=== PATIENT | female | born 1990 | race African-American/Black ===

== ENCOUNTER 2019-09-27 06:17 | Inpatient (IN) | payer OTHER, SELFPAY ==
--- NOTE | ~2019-09-27 | XR_ITS ---
EXAMINATION: XR chest 2V DATE: 09/27/2019 08:21 INDICATION: Shortness of breath. Fever. TECHNIQUE: Frontal and lateral views of the chest were obtained. COMPARISON: CT abdomen and pelvis 09/27/2019 FINDINGS: The chest demonstrates clear lungs without pneumonia, pleural effusion, or pneumothorax. Th e heart size is normal. IMPRESSION: 1. No acute cardiopulmonary disease. Reviewed, dictated and finalized at location A.
--- NOTE | ~2019-09-27 | CT_ITS ---
EXAMINATION: CT abdomen pelvis w con DATE: 09/27/2019 08:21 INDICATION: Abdominal pain. Fever. TECHNIQUE: Computed tomography (CT) of the abdomen and pelvis was performed with 100 mL Omnipaque 350 intravenous contrast. Automated exposure control and iterative reconstruction technique were employe d. The dose-length product was 339.32 mGy-cm. COMPARISON: None. FINDINGS: The visualized portions of the lung bases are clear without pneumonia or pleural effusion. The heart size is normal. No pericardial effusion. There is a 10 mm cyst in the liver. The gallbladde r, spleen, pancreas, adrenal glands, and kidneys are normal. There are no dilated loops of bowel. The appendix is normal. There are no pathologically enlarged lymph nodes. There is no free intraperitone al fluid. The bones are unremarkable. IMPRESSION: 1. No etiology for the patient's symptoms. Reviewed, dictated and finalized at location A.
[2019-09-27 06:20] VITALS: BP 97/44; PULSE 110; RESP 18; TEMP 36.7; O2SAT 100
[2019-09-27 06:40] VITALS: BP 118/68; PULSE 100; RESP 18; O2SAT 100
--- NOTE | 2019-09-27 06:45 | ED.BACK ---
HPI - Back Pain/Injury General Chief Complaint: Back Pain/Injury Stated Complaint: fever, SOB Source: patient and EMS Mode of arrival: EMS Limitations: no limitations History of Present Illness HPI Narrative: This is a 28-year-old female that presents via EMS to our emergency department with right flank pain that radiates into her upper back and neck area that started approximately 2 days ago had progressively increased over the past 2 days, patient states that she does not have a thermometer but she has a subjective fever, with no nausea or vomiting there is currently no dysuria no hematuria there is pain in her right flank that she rates at about a 6/10, she has no chest pain, with some mild shortness of breath with a cough that is nonproductive. Patient with past medical history according to patient's significant for renal insufficiency that she was hospitalized for back in May at [facility]. Otherwise the patient is a smoker, with some alcohol use. Patient also states that there is some weakness along with her fever and flank pain. MD elicited complaint: back pain Onset (ago): day(s) Timing: intermittent Severity: moderate Pain scale (0-10): 6 Similar Symptoms Previously: Yes Quality: dull Location: right flank Radiation: neck Exacerbating factors: none Relieving factors: none Associated symptoms: weakness, fever and abdominal pain Related Data Home Medications Medication Instructions Recorded Confirmed No Home Medications 09/27/19 09/27/19 Allergies Allergy/AdvReac Type Severity Reaction Status Date / Time No Known Allergies Allergy Verified 09/27/19 06:28 Review of Systems Review of Systems: All systems reviewed & are unremarkable except as noted in HPI and below PMFSH Past Medical History Medical History Renal insufficiency Exam Const: General: no acute distress and alert Orientation/consciousness: patient oriented x3 Limitations: altered mental status HENMT: Head: normal to inspection Eyes: Conjunctivae: conjunctivae normal Pupils: Equal, round and reactive pupils present Neck: Neck: normal visual inspection and no lymphadenopathy Chest: Chest palpation & inspection: normal inspection of the chest and abnormal inspection of the chest Resp: Effort & Inspection: normal respiratory effort Auscultation: clear to auscultation bilaterally Cardio: Rate: regular rate Rhythm: regular rhythm GI: Inspection: distended : General: Yes Bladder palpation abnormal and Yes CVA tenderness Back/Spine/Pelvis: Back: CVA tenderness Skin: General skin exam: normal color Rashes: no rashes Neuro: General: patient oriented x3, moves all extremities, no meningeal signs and no focal motor deficits Extrem: General: normal to inspection Psych: Appearance: grossly normal Mental Status: mental status grossly normal Affect: normal affect Thought content: Yes Normal thought content present Course Vital Signs Vital signs: Vital Signs Temperature 36.7 C 09/27/19 06:20 Pulse Rate 110 H 09/27/19 06:20 Respiratory Rate 18 09/27/19 06:20 Blood Pressure 97/44 L 09/27/19 06:20 Pulse Oximetry 100 09/27/19 06:20 Temperature 36.7 C 09/27/19 06:20 Pulse Rate 100 09/27/19 06:40 Respiratory Rate 18 09/27/19 06:40 Blood Pressure 118/68 09/27/19 06:40 Pulse Oximetry 100 09/27/19 06:40 Critical Care Time Critical Care Time Critical Care Time: No Discharge Plan Discharge Prescriptions: No Action No Home Medications RF: 0 Follow-up/Referrals: UNKNOWN,DOCTOR [Primary Care Provider] -
[2019-09-27] MEDS: SODIUM CHLORIDE 0.9% IV 1,000 ML 999 ML IV CONT (06:57)
[2019-09-27 07:11] LABS: Hematocrit 39.2 % (35.0-49.0); Hemoglobin 13.1 g/dL (12.0-15.0); Mean Corpuscular HGB Conc 33.4 g/dL (32.0-36.0); Mean Corpuscular Volume 95.8 fL (78.0-102.0); Mean Platelet Volume 9.7 fl (9.2-11.8); Platelet Count Result 308 K/mm3 (150-420); Red Blood Count 4.09 M/mm3 (4.20-5.40); White Blood Count 13.9 K/mm3 (4.8-10.8)
--- NOTE | 2019-09-27 07:11 | ED.ABDPAIN ---
HPI - Abdominal Pain General Chief Complaint: Back Pain/Injury Stated Complaint: fever, SOB Time Seen by Provider: 09/27/19 07:11 Source: patient and EMS Mode of arrival: EMS Limitations: no limitations History of Present Illness HPI narrative: 28-year-old woman comes in today complaining of right flank pain which has been present for last 3 days. Patient states that she has had fever and 3 episodes of vomiting in the last 24 hours. She denies hematuria and dysuria. She states that she was admitted for similar symptoms at [facility] for she was also diagnosed with some degree of renal failure. MD elicited complaint: abdominal pain and flank pain Pertinent past history: past UTI Onset (ago): day(s) Pain Consistency: constant Location: R flank Severity: moderate Quality: aching and sharp Radiation: none Migration to: no migration Exacerbating factors: nothing Relieving factors: nothing Associated symptoms: nausea, vomiting and fever Related Data Home Medications Medication Instructions Recorded Confirmed No Home Medications 09/27/19 09/27/19 Allergies Allergy/AdvReac Type Severity Reaction Status Date / Time No Known Allergies Allergy Verified 09/27/19 06:28 Review of Systems Constitutional: Constitutional: Reports chills, Reports fatigue, Reports fever(s) and Denies weakness Eyes: Eyes: Denies change in vision and Denies photophobia ENT: Denies dysphagia, Denies nasal congestion and Denies sore throat Cardiovascular: Cardiovascular: Denies chest pain and Denies radiating jaw, neck or arm pain Respiratory: Respiratory: Denies cough, Reports dyspnea and Denies wheezing Gastrointestinal: Gastrointestinal: Reports abdominal pain, Denies diarrhea, Reports nausea and Reports vomiting Genitourinary: Genitourinary: Denies hematuria, Denies nocturia, Denies dysuria and Reports flank pain Musculoskeletal: Musculoskeletal: Reports back pain, Denies arthralgias, Denies joint swelling and Denies muscle cramps Integumentary/Breasts: Skin/Breast: Denies pruritus, Denies erythema and Denies rash Neurologic: Denies vertigo, Denies dizziness and Denies syncope Psychiatric: Psychiatric: Denies anxiety and Denies depression Endocrine: Endocrine: Denies polydipsia and Denies polyuria Hematologic/Lymphatic: Hematologic/Lymphatic: Denies easy bleeding and Denies easy bruising Allergic/Immunologic: Allergic/Immunologic: Denies lip swelling and Denies wheezing PMFSH Past Medical History Medical History (Updated 09/27/19 @ 08:38 by Juan Francisco Ordaz MD) Renal insufficiency Surgical History Surgical History (Updated 09/27/19 @ 07:20 by Juan Francisco Ordaz MD) H/O hand surgery Social History Social History (Updated 09/27/19 @ 07:21 by Juan Francisco Ordaz MD) Smoking status: Current every day smoker Alcohol intake: never Substance use type: marijuana Living arrangements: with family Exam Const: General: healthy appearing and alert Orientation/consciousness: patient oriented x3 Limitations: no limitations Other: Moderate acute distress HENMT: Mouth: Yes Normal oral and palatal mucosa present and Yes moist mucous membranes Throat: posterior oropharynx normal Eyes: Conjunctivae: conjunctivae normal Pupils: Equal, round and reactive pupils present EOM: EOMs intact bilaterally Neck: Neck: normal visual inspection and no lymphadenopathy Resp: Effort & Inspection: normal respiratory effort and not labored Auscultation: clear to auscultation bilaterally, no rales, no rhonchi and no wheezes Cardio: Rate: regular rate Rhythm: regular rhythm Heart sounds: no murmurs GI: GI Palp: Yes Soft to palpation, Yes Tenderness to palpation present (GI), No Guarding due to palpation present (GI), No Rigid due to palpation and No Rebound tenderness present : General: Yes CVA tenderness on the right Skin: General skin exam: normal color, no jaundice and no pallor Rashes: no rashes Neuro: General: p
[2019-09-27 07:16] LABS: Add Urine Microscopic? YES; Appearance Urine Cloudy (Clear); Bilirubin Urine 1+ (Negative); Blood Urine 3+ (Negative); Color Urine Straw (Yellow); Glucose Urine UA Negative (Negative); Ketones Urine 1+ (Negative); Leukocyte Esterase Ur 2+ (Negative); Nitrate Urine Positive (Negative); Protein Urine 2+ (Negative); Specific Grav Ur 1.025 (1.010-1.020)
[2019-09-27 07:18] LABS: Pregnancy On Board Control POS; Urine Pregnancy Test Negative
[2019-09-27 07:19] LABS: Specific Gravity Ur 1.025 (1.010-1.035)
[2019-09-27 07:25] LABS: Squamous Epithelial Cell Urine Few /hpf (Few); WBC Urine >75 /hpf (0-3)
[2019-09-27 07:26] LABS: Bacteria Urine 3+ /hpf; Mucus Urine Moderate /lpf
[2019-09-27 07:27] LABS: Alanine Aminotransferase 14 U/L (14-59); Albumin Level 3.8 g/dL (3.4-5.0); Alkaline Phosphatase 67 U/L (46-116); Anion Gap 13.7 mmol/L (7-16); Aspartate Amino Transferase 17 U/L (15-37); Bilirubin,Total 0.7 mg/dL (0.00-1.00); Blood Urea Nitrogen 12 mg/dL (7-18); Calcium 9.1 mg/dL (8.5-10.1); Carbon Dioxide 27 mmol/L (21-32); Chloride 101 mmol/L (98-108); Estimated CRCL calculation 53 ml/min; Estimated Glomerular Filt Rate > 60; Glucose 94 mg/dL (70-99); Osmolality Calculated 285 mOsm/kg (285-295); Potassium 3.7 mmol/L (3.5-5.1); Sodium 138 mmol/L (136-145); Total Protein 7.4 g/dL (6.4-8.2)
[2019-09-27] MEDS: HYDROMORPHONE HCL 2 MG/ML VIAL 0.5 MG IV PUSH ×3 (07:30→18:00)
[2019-09-27] MEDS: ONDANSETRON INJ 4 MG/2 ML VIAL IV PUSH ×3 (07:30→19:27)
[2019-09-27 07:35] LABS: Lactic Acid 1.7 mmol/L (0.4-2.0)
[2019-09-27 07:36] LABS: Influenza Control Valid (Valid)
[2019-09-27 07:39] LABS: Basophils Absolute Auto 0.04 K/mm3 (0.00-0.10); Basophils Percent Auto 0.3 % (0.0-1.0); Eosinophils Absolute Auto 0.02 K/mm3 (0.02-0.50); Eosinophils Percent Auto 0.1 % (1.0-6.0); Hematocrit 38.9 % (35.0-49.0); Hemoglobin 13.1 g/dL (12.0-15.0); Immature Granulocyte Absolute 0.09 K/mm3 (0.00-0.00); Immature Granulocyte Percent A 0.7 % (0.0-0.0); Lymphocytes Absolute Auto 2.32 K/mm3 (1.10-4.50); Lymphocytes Percent Auto 17.1 % (18.0-42.0); Mean Corpuscular HGB Conc 33.7 g/dL (32.0-36.0); Mean Corpuscular Hemoglobin 32.2 pg (27.0-31.0); Mean Corpuscular Volume 95.6 fL (78.0-102.0); Mean Platelet Volume 9.9 fl (9.2-11.8); Monocytes Absolute Auto 1.48 K/mm3 (0.10-0.90); Monocytes Percent Auto 10.9 % (2.0-11.0); Neutrophils Absolute Auto 9.6 K/mm3 (1.7-7.2); Neutrophils Percent Auto 70.9 % (50.0-70.0); Platelet Count Result 308 K/mm3 (150-420); Red Blood Count 4.07 M/mm3 (4.20-5.40); White Blood Count 13.6 K/mm3 (4.8-10.8)
[2019-09-27 07:46] LABS: Lipase 45 U/L (73-393)
[2019-09-27 08:46] VITALS: BP 111/75; PULSE 98; RESP 20; TEMP 36.6; O2SAT 100
--- NOTE | 2019-09-27 08:55 | PC.NURSE ---
Pt. to be full admit for floor, report given to CHRISTI Uriostegui and pt. resting c VSS.
[2019-09-27 09:10] VITALS: BMI 18.3
--- NOTE | 2019-09-27 09:10 | ADMGEN ---
This patient, Siri Trevizo, was admitted to 2nd Floor Room 201-1. Patient/family oriented to hospital policies and general routines including ID bracelet, bed and alarms, visiting hours, pain management, procedures, bathroom and other care routines, personal items, smoking policy, room service/diet, and visiting hours. Valuables list has been completed. Information on how to activate the Rapid Response Team has been discussed. Patient/Family are encouraged to report perceived risks to care and to ask questions if they do not understand what they are told or what they should do.
[2019-09-27] MEDS: DEXTROSE 5%/0.45% SOD CHL 1,000 ML 150 ML IV CONT ×2 (10:05→18:00)
--- NOTE | 2019-09-27 11:59 | PM.IMHP ---
H&P: HPI History of Present Illness Chief complaint: fever, SOB Narrative: Siri Trevizo is a 28 year old female that presented to the ED today complaining of right flank plain which radiates to her mid abdominal area. Patient has a past medical history of acute renal failure. According to patient back in May she was admitted to [facility] in [place] for pyelonephritis in acute renal failure. According to patient she was placed on IV antibiotic as inpatient and she was discharge with p.o. antibiotics. she did not rock picker her prescription of antibiotics after discharging. According to patient she has had right flank pain that radiates with a temperature and nausea for approximately 3 days. She did not take anything at home for her symptoms. She decided to come to the ED today because she did not want her condition to worsen like it did in May . patient also reported occasional shortness of breath. while in the ER her UA indicated that she had leukocytes bacteria and nitrates in her urine. Her abdominal CT and chest x-ray were unremarkable her lactic acid and white blood cells were within normal limits she was started on Rocephin her blood cultures and UA Cultures are pending. Vital signs are 111/75, 98, 20, 36.6, 100% on room air. patient is being admitted for follow pyelonephritis. we will hydrate her overnight and she will receive IV antibiotics. she will possibly discharge tomorrow. patient educated on the importance of continuing her antibiotic treatment once she is discharged. Patient denies SOB, CP, palpitation, extremity numbness, lightheadness, dizziness, constipation, diarrhea, chills or fever. Review of Systems Constitutional: Constitutional: Reports fatigue, Reports fever(s) and Reports poor appetite Cardiovascular: Cardiovascular: Reports no additional cardiovascular complaints, Denies chest pain at rest, Denies edema, Denies palpitations and Reports dyspnea Respiratory: Respiratory: Reports no additional respiratory complaints, Denies chest congestion, Denies cough and Reports dyspnea Gastrointestinal: Gastrointestinal: Reports no additional gastrointestinal complaints, Reports abdominal pain ( right flank pain that radiates to her mid abd area), Denies constipation, Denies dyspepsia, Denies diarrhea, Reports nausea and Reports vomiting Genitourinary: Genitourinary: Denies hematuria and Denies dysuria Musculoskeletal: Musculoskeletal: Reports no additional musculoskeletal complaints Integumentary/Breasts: Skin/Breast: Reports system reviewed and no additional complaints, except as docu Neurologic: Reports system reviewed and no additional complaints, except as documented, Denies confusion, Denies vertigo, Denies dizziness, Denies syncope, Denies loss of vision and Denies numbness Psychiatric: Psychiatric: Reports no additional psychiatric complaints, Denies anxiety, Denies confusion and Denies depression Endocrine: Endocrine: Reports no additional endocrine complaints Hematologic/Lymphatic: Hematologic/Lymphatic: Reports no additional hematologic/lymphatic complaints PMFSH Past Medical History Medical History (Updated 09/27/19 @ 12:18 by JUSTIN Zurita) Renal insufficiency Surgical History Surgical History (Updated 09/27/19 @ 07:20 by Juan Francisco Ordaz MD) H/O hand surgery Social History Social History (Updated 09/27/19 @ 07:21 by Juan Francisco Ordaz MD) Smoking packs per day: 0.5 Smoking cigarettes per day: 10.0 Smoking status: Current every day smoker Tobacco type: cigarettes Alcohol intake: current Drinks per week: 2 Substance use: current Substance use type: marijuana Living arrangements: with family Gender identity (if verbalized by the patient): Female Spiritual care concerns: No Agree to blood products: Yes Meds Home Medications and Allergies Home Medications Medication Instructions Recorded Confirmed Type No Home Me
--- NOTE | 2019-09-27 12:15 | PC.NURSE ---
Patient reporting nausea. Patient had small emesis of food particles/bile. Given zofran per order.
--- NOTE | 2019-09-27 14:20 | PC.NURSE ---
Patient sleeping quietly in bed. IV fluids continue per order. Patient shows no signs of distress at present. Call light and belongings in reach.
[2019-09-27 15:25] VITALS: BP 116/69; PULSE 79; RESP 16; TEMP 37.3; O2SAT 99
--- NOTE | 2019-09-27 16:25 | PC.NURSE ---
Patient sleeping quietly in bed. No distress noted, breathing unlabored and even. Call light at side.
[2019-09-27 18:31] LABS: Anion Gap 13.3 mmol/L (7-16); Blood Urea Nitrogen 8 mg/dL (7-18); Carbon Dioxide 24 mmol/L (21-32); Chloride 103 mmol/L (98-108); Estimated CRCL calculation 69 ml/min; Estimated Glomerular Filt Rate > 60; Glucose 124 mg/dL (70-99); Osmolality Calculated 283 mOsm/kg (285-295); Potassium 3.3 mmol/L (3.5-5.1); Sodium 137 mmol/L (136-145)
[2019-09-27] MEDS: KCL 20 MEQ/SW 100 ML 100 ML 50 MEQ IVPB (19:25)
[2019-09-27] MEDS: POTASSIUM CHLORIDE 20 MEQ PACKET (FOR LIQUID) 40 MEQ PO (19:26)
[2019-09-27 21:47] VITALS: BP 120/48; PULSE 64; RESP 16; TEMP 36.4; O2SAT 99
[2019-09-27] MEDS: DEXTROSE 5%/0.45% SOD CHL 1,000 ML 100 ML IV CONT (23:31)
--- NOTE | 2019-09-28 01:10 | PC.NURSE ---
pt sleeping, respirations even and regular, no evidence of distress noted at this time.
--- NOTE | 2019-09-28 03:40 | PC.NURSE ---
pt sleeping, respirations even and regular, no evidence of distress noted at this time.
[2019-09-28 05:41] LABS: Basophils Absolute Auto 0.03 K/mm3 (0.00-0.10); Basophils Percent Auto 0.4 % (0.0-1.0); Eosinophils Absolute Auto 0.08 K/mm3 (0.02-0.50); Hematocrit 32.5 % (35.0-49.0); Immature Granulocyte Absolute 0.02 K/mm3 (0.00-0.00); Immature Granulocyte Percent A 0.3 % (0.0-0.0); Lymphocytes Absolute Auto 1.71 K/mm3 (1.10-4.50); Mean Corpuscular HGB Conc 33.8 g/dL (32.0-36.0); Mean Corpuscular Hemoglobin 32.2 pg (27.0-31.0); Mean Platelet Volume 9.3 fl (9.2-11.8); Monocytes Absolute Auto 1.12 K/mm3 (0.10-0.90); Monocytes Percent Auto 14.4 % (2.0-11.0); Neutrophils Absolute Auto 4.8 K/mm3 (1.7-7.2); Neutrophils Percent Auto 61.9 % (50.0-70.0); Platelet Count Result 271 K/mm3 (150-420); Red Blood Count 3.42 M/mm3 (4.20-5.40); Red Cell Distribution Width 13.9 % (11.6-14.4); White Blood Count 7.8 K/mm3 (4.8-10.8)
[2019-09-28] MEDS: HYDROMORPHONE HCL 2 MG/ML VIAL 0.5 MG IV PUSH (05:50)
[2019-09-28] MEDS: ONDANSETRON INJ 4 MG/2 ML VIAL IV PUSH (05:50)
[2019-09-28 06:10] LABS: Alanine Aminotransferase 12 U/L (14-59); Albumin Level 2.8 g/dL (3.4-5.0); Alkaline Phosphatase 48 U/L (46-116); Anion Gap 12.7 mmol/L (7-16); Aspartate Amino Transferase 10 U/L (15-37); Bilirubin,Total 0.3 mg/dL (0.00-1.00); Blood Urea Nitrogen 4 mg/dL (7-18); Calcium 7.7 mg/dL (8.5-10.1); Carbon Dioxide 25 mmol/L (21-32); Chloride 106 mmol/L (98-108); Estimated CRCL calculation 77 ml/min; Estimated Glomerular Filt Rate > 60; Glucose 96 mg/dL (70-99); Osmolality Calculated 286 mOsm/kg (285-295); Potassium 3.7 mmol/L (3.5-5.1); Sodium 140 mmol/L (136-145); Total Protein 5.4 g/dL (6.4-8.2)
[2019-09-28 07:46] VITALS: BP 106/67; PULSE 68; RESP 18; TEMP 36.4; O2SAT 98
[2019-09-28] MEDS: DEXTROSE 5%/0.45% SOD CHL 1,000 ML 100 ML IV CONT (09:41)
[2019-09-28] MEDS: PROCHLORPERAZINE EDISYLATE 10 MG/2 ML VIAL IV PUSH (09:51)
--- NOTE | 2019-09-28 11:51 | P.PNIM_ITS ---
Progress Note: A&P Assessment and Plan (1) Pyelonephritis: Code(s): N12 - Tubulo-interstitial nephritis, not specified as acute or chronic <Nishantana RubenJUSTIN Gibbons - Last Filed: 09/28/19 11:59> Status: Acute <Betty CroninJUSTIN - Last Filed: 09/28/19 11:59> Assessment and Plan: * patient with history of pyelonephritis * as evidence by UA positive for nitrate, RBC, leukocytes esterase and bacteria * UA and blood culture pending * patient currently afebrile * wbc's WNL * CBC in a.m. * started on Rocephin DAY 2 * continue IV hydration * REQUESTED UA CULTURE RESULTS FROM [facility] TO DETERMINE WHICH ANTIBIOTICS TO DISCHARGE PATIENT ON. <Nishantana RubenJUSTIN Gibbons - Last Filed: 09/28/19 11:59> (2) Renal insufficiency: Code(s): N28.9 - Disorder of kidney and ureter, unspecified <Betty RubenJUSTIN Gibbons - Last Filed: 09/28/19 11:59> Status: Acute <Betty MirandaJUSTIN Gibbons - Last Filed: 09/28/19 11:59> Assessment and Plan: * patient has a history of acute renal insufficiency * requested medical records from [facility] in [place] * will continue to monitor renal function <JUSTIN Zurita - Last Filed: 09/28/19 11:59> (3) Nausea: Code(s): R11.0 - Nausea <Nishantana RubenJUSTIN Gibbons - Last Filed: 09/28/19 11:59> Status: Acute <Nishantana RubenJUSTIN Gibbons - Last Filed: 09/28/19 11:59> Assessment and Plan: * secondary to pyelonephritis * continue Zofran AND COMPAZINE. BUT ALSO SCHEDULES OVER 30 MINUTES BEFORE MEALS <JUSTIN Zurita - Last Filed: 09/28/19 11:59> (4) Vomiting: Code(s): R11.10 - Vomiting, unspecified <JUSTIN Zurita - Last Filed: 09/28/19 11:59> Status: Acute <Sonda RJUSTIN Gibbons Siobhan Last Filed: 09/28/19 11:59> Assessment and Plan: * secondary to the pyelonephritis * continue Zofran AND COMPAZINE. WILL ALSO SCHEDULE ZOFRAN 30 MINUTES BEFORE MEALS <JUSTIN Zurita - Last Filed: 09/28/19 11:59> (5) Elevated WBCs: Code(s): D72.829 - Elevated white blood cell count, unspecified <JUSTIN Zurita Siobhan Last Filed: 09/28/19 11:59> Status: Acute <Nishantana RubenJUSTIN Gibbons Siobhan Last Filed: 09/28/19 11:59> Assessment and Plan: secondary to pyelonephritis * WBC WITHIN NORMAL LIMITS * CBC in a.m. * continue Rocephin <JUSTIN Zurita - Last Filed: 09/28/19 11:59> Subjective Date/time seen: 09/28/19 11:51 PATIENT IS UNABLE TO TOLERATE MEALS AT THIS TIME, SHE COMPLAINS OF NAUSEA WITH MEALS. SHE ADMITS THAT HER ABDOMINAL PAIN HAS IMPROVED. SHE CONTINUES TO HAVE ABDOMINAL TENDERNESS. SHE HAS NO OTHER COMPLAINTS AT THIS TIME. PATIENT SLEPT WELL AND AMBULATE AT BASELINE. PATIENT DENIES SOB, CP, PALPITATION, EXTREMITY NUMBNESS, LIGHTHEADNESS, DIZZINESS, CONS TIPATION, DIARRHEA, CHILLS OR FEVER. PATIENT WILL POSSIBLY DISCHARGE TOMORROW IF SHE CAN TOLERATE ALL MEALS. . <JUSTIN Zurita - Last Filed: 09/28/19 11:59> Review of Systems Constitutional: Constitutional: Denies difficulty sleeping, Denies fatigue, Denies fever(s), Denies lethargy and Denies poor appetite <JUSTIN Zurita - Last Filed: 09/28/19 11:59> Eyes: Eyes: Denies loss of vision <JUSTIN Zurita Last Filed: 09/28/19 11:59> ENT: Denies vertigo and Denies dizziness <JUSTIN Zurita - Last Filed: 09/28/19 11:59> Cardiovascular: Cardiovascular: Reports no additional cardiovascular complai nts, [place]
--- NOTE | 2019-09-28 11:51 | PM.IMPN ---
Progress Note: A&P Assessment and Plan (1) Pyelonephritis: Code(s): N12 - Tubulo-interstitial nephritis, not specified as acute or chronic <JUSTIN Zurita - Last Filed: 09/28/19 11:59> Status: Acute <Betty RubenJUSTIN Gibbons - Last Filed: 09/28/19 11:59> Assessment and Plan: patient with history of pyelonephritis as evidence by UA positive for nitrate, RBC, leukocytes esterase and bacteria UA and blood culture pending patient currently afebrile wbc's WNL CBC in a.m. started on Rocephin DAY 2 continue IV hydration REQUESTED UA CULTURE RESULTS FROM [facility] TO DETERMINE WHICH ANTIBIOTICS TO DISCHARGE PATIENT ON. <JUSTIN Zurita - Last Filed: 09/28/19 11:59> (2) Renal insufficiency: Code(s): N28.9 - Disorder of kidney and ureter, unspecified <JUSTIN Zurita - Last Filed: 09/28/19 11:59> Status: Acute <JUSTIN Zurita - Last Filed: 09/28/19 11:59> Assessment and Plan: patient has a history of acute renal insufficiency requested medical records from [facility] in [place] will continue to monitor renal function <JUSTIN Zurita - Last Filed: 09/28/19 11:59> (3) Nausea: Code(s): R11.0 - Nausea <JUSTIN Zurita - Last Filed: 09/28/19 11:59> Status: Acute <JUSTIN Zurita - Last Filed: 09/28/19 11:59> Assessment and Plan: secondary to pyelonephritis continue Zofran AND COMPAZINE. BUT ALSO SCHEDULES OVER 30 MINUTES BEFORE MEALS <JUSTIN Zurita - Last Filed: 09/28/19 11:59> (4) Vomiting: Code(s): R11.10 - Vomiting, unspecified <JUSTIN Zurita - Last Filed: 09/28/19 11:59> Status: Acute <JUSTIN Zurita - Last Filed: 09/28/19 11:59> Assessment and Plan: secondary to the pyelonephritis continue Zofran AND COMPAZINE. WILL ALSO SCHEDULE ZOFRAN 30 MINUTES BEFORE MEALS <JUSTIN Zurita - Last Filed: 09/28/19 11:59> (5) Elevated WBCs: Code(s): D72.829 - Elevated white blood cell count, unspecified <JUSTIN Zurita Last Filed: 09/28/19 11:59> Status: Acute <JUSTIN Zurita Last Filed: 09/28/19 11:59> Assessment and Plan: secondary to pyelonephritis WBC WITHIN NORMAL LIMITS CBC in a.m. continue Rocephin <JUSTIN Zurita - Last Filed: 09/28/19 11:59> Subjective Date/time seen: 09/28/19 11:51 PATIENT IS UNABLE TO TOLERATE MEALS AT THIS TIME, SHE COMPLAINS OF NAUSEA WITH MEALS. SHE ADMITS THAT HER ABDOMINAL PAIN HAS IMPROVED. SHE CONTINUES TO HAVE ABDOMINAL TENDERNESS. SHE HAS NO OTHER COMPLAINTS AT THIS TIME. PATIENT SLEPT WELL AND AMBULATE AT BASELINE. PATIENT DENIES SOB, CP, PALPITATION, EXTREMITY NUMBNESS, LIGHTHEADNESS, DIZZINESS, CONSTIPATION, DIARRHEA, CHILLS OR FEVER. PATIENT WILL POSSIBLY DISCHARGE TOMORROW IF SHE CAN TOLERATE ALL MEALS. . <JUSTIN Zurita - Last Filed: 09/28/19 11:59> Review of Systems Constitutional: Constitutional: Denies difficulty sleeping, Denies fatigue, Denies fever(s), Denies lethargy and Denies poor appetite <JUSTIN Zurita - Last Filed: 09/28/19 11:59> Eyes: Eyes: Denies loss of vision <JUSTIN Zuriat - Last Filed: 09/28/19 11:59> ENT: Denies vertigo and Denies dizziness <JUSTIN Zurita - Last Filed: 09/28/19 11:59> Cardiovascular: Cardiovascular: Reports no additional cardiovascular complaints, Denies chest pain at rest, Denies syncope, Denies edema, Denies palpitations and Reports dyspnea <JUSTIN Zurita - Last Filed: 09/28/19 11:59> Respiratory: Respiratory: Reports no additional respiratory complaints, Denies chest congestion, Denies cough and Reports dyspnea <JUSTIN Zurita - Last Filed: 09/28/19 11:59> Gastrointestinal: Gastrointestinal: Reports no additional ga
[2019-09-28 16:00] VITALS: BP 112/67; PULSE 51; RESP 18; TEMP 36.4; O2SAT 99
--- NOTE | 2019-09-28 18:42 | PC.NURSE ---
Patient called conventional underwriter to room. Patient states she feels better she wants to go home to see her kids. She had not seen them in 3 days. Project Estimator explained the ER MD would be notified as PRODUCT OPERATIONS ASSOCIATE gone for the day. Patient verbalized understanding. Patient called conventional underwriter to room 10 miuntes later. Patient stated she doesn't want to wait for discharge. She wants to sign out AMA. AMA paper taken to patient. Project Estimator instructed patient to read paper. Patient stated I don't care I just want to sign it and leave. Patient signed AMA paper. Project Estimator removed RAC #[id number]. Patient dressed self. Patient called sister. Project Estimator accompanied patient to first floor waiting area.
--- NOTE | 2019-09-28 18:49 | PC.NURSE ---
[id number] Dr. Byers, LARRY SÁNCHEZ, notified that patient stated she feels better, misses her children and wants to go home. to put in d/c orders.
--- NOTE | 2019-09-28 18:51 | PC.NURSE ---
[id number] notified that patient stated she needed to go now . [facility] explained that the doctor is working on d/c orders. Patient stated she wanted the AMA paperwork and not willing to wait for d/c paperwork. acknowlged patient going AMA.
== END 2019-09-28 18:40 | disposition left against medical advice (07) | DRG 463 ==
LOC: CHSED 08:38 → CHS2ND 08:57
PROVIDERS: Emergency Medicine; Admitting Provider Emergency Medicine; Emergency Provider Emergency Medicine; Visit Provider Emergency Medicine
DX: N12 Tubulo-interstitial nephritis, not specified as acute or chronic (principal); N28.9 Disorder of kidney and ureter, unspecified; F17.200 Nicotine dependence, unspecified, uncomplicated; Z53.29 Procedure and treatment not carried out because of patient's decision for other reasons; F12.90 Cannabis use, unspecified, uncomplicated
CPT/HCPCS: 36415; 71046; 74177; 80048; 80053; 81001; 81025; 83605; 83690; 85025; 85027; 87040; 87077; 87086; 87088; 87186; 87804; 99285; A9270; J0696; J0780; J1170; J1650; J2405; J3480; J7030; Q9965